=== PATIENT | female | born 1980 | race Caucasian/White ===

== ENCOUNTER 2022-10-06 08:52 | Emergency (ER) | payer OTHER, SELFPAY ==
[2022-10-06 10:00] VITALS: BP 120/75; PULSE 78; RESP 20; TEMP 37.3; O2SAT 100
--- NOTE | 2022-10-06 10:40 | ED.URI ---
HPI - URI/Sore Throat General Chief Complaint: Upper Respiratory Infection Stated Complaint: Cough/Sinus Congestion Time Seen by Provider: 10/06/22 10:40 Source: patient, RN notes reviewed and old records reviewed Mode of arrival: ambulatory Limitations: no limitations History of Present Illness HPI Narrative: 42-year-old female presents to [facility] with complaints of harsh productive cough, sinus congestion, sinus pressure, headache, nasal drainage for the past 3 days. Patient reports she has been taking ibuprofen and NyQuil for symptoms, rates her pain 10/10 denies any known sick contact. Patient has not been COVID vaccinated nor has she had a flu shot. Patient denies any chills or sweats denies any known fevers or any body aches patient denies any shortness of breath. MD elicited complaint: cough, rhinorrhea, nasal congestion and sinus pain Pertinent past history: other (Tobacco use) Onset (ago): day(s) (3) Pain scale (0-10): 10 Treatments prior to arrival: ibuprofen and other (NyQuil) Related Data Allergies Allergy/AdvReac Type Severity Reaction Status Date / Time codeine Allergy Unknown Other Verified 10/06/22 10:09 Review of Systems Review of Systems: CONSTITUTIONAL: Reports malaise,no chills, sweats, no known fevers EYES: Denies visual changes, redness, or discharge. ENT: Reports rhinorrhea, congestion, facial sinus pain, otalgia and sore throat. CARDIOVASCULAR: Denies chest pain, palpitations, or edema. RESPIRATORY: Reports acute cough.? Denies dyspnea. GASTROINTESTINAL: Denies abdominal pain, nausea, vomiting, diarrhea SKIN: Denies rash or itching. MUSCULOSKELETAL: Denies myalgia. NEUROLOGIC: Reports headache. All systems reviewed & are unremarkable except as noted in HPI and below PMFSH Surgical History Surgical History (Updated 10/06/22 @ 10:52 by Pam Wasserman NP) Previous section Social History Social History (Updated 10/06/22 @ 10:52 by Pam Wasserman NP) Smoking packs per day: 0.3 Smoking cigarettes per day: 6.0 Smoking status: Current every day smoker Second hand tobacco smoke exposure: Yes Alcohol intake: current Substance use type: does not use Gender identity (if verbalized by the patient): Female Comments At time of signature, agree with nursing past medical, surgical, social and family history. There is no relevant family history pertinent to the presenting complaint Exam Narrative: GENERAL: Well-appearing, well-nourished, and in no acute distress. HEAD: Normocephalic EYES: PERRLA, conjunctivae clear ENT: Nares clear, turbinates edematous and erythematous, clear light yellow discharge. Mucous membranes moist. TM pearly gramajo with dull light reflex bilaterally; no tragal tenderness. Oropharynx erythematous without lesions. Tonsils not enlarged and without exudate, no drooling, no hoarseness, no trismus, uvula midline.post nasal drainge NECK: Supple. No lymphadenopathy CHEST: Clear to auscultation, breath sounds equal. No wheezing, rhonchi, rales, or stridor. No respiratory distress, speaks in full sentences.harsh productive cough SAO2 100% on room air HEART: Regular rate and rhythm. No murmur heard. SKIN: Warm, dry, no rash. NEURO: Alert and oriented x3. PSYCH: Normal mood and affect Course Course Emergency Course: Patient is aware of diagnosis, understands and agrees to treatment plan.? Anticipatory guidance given.? Patient agrees to follow-up as directed and is aware of reasons to seek care at the emergency department. Portions of this record may have been created with voice recognition software Level of Care: Express Care Visit Vital Signs Vital signs: Vital Signs Temperature 37.3 C 10/06/22 10:00 Pulse Rate 78 10/06/22 10:00 Respiratory Rate 20 10/06/22 10:00 Blood Pressure 120/75 10/06/22 10:00 Pulse Oximetry 100 10/06/22 10:00 Oxygen Delivery Room Air 10/06/22 10:00 Temperature 37.3 C
== END 2022-10-06 11:00 | disposition home or self-care (01) ==
PROVIDERS: Emergency Provider Registered Nurse
DX: J32.9 Chronic sinusitis, unspecified (principal); R05.1 Acute cough; F17.210 Nicotine dependence, cigarettes, uncomplicated
CPT/HCPCS: 99203; G0463

== ENCOUNTER 2023-01-07 08:59 | Emergency (ER) | payer OTHER, SELFPAY ==
[2023-01-07 09:05] VITALS: BP 129/73; PULSE 90; RESP 16; TEMP 37.7; O2SAT 100
--- NOTE | 2023-01-07 09:37 | ED.URI ---
HPI - URI/Sore Throat General Chief Complaint: Upper Respiratory Infection Stated Complaint: Headache/Nausea Time Seen by Provider: 01/07/23 09:25 Source: patient, RN notes reviewed and old records reviewed Mode of arrival: ambulatory Limitations: no limitations History of Present Illness HPI Narrative: 42-year-old female who presents to [facility] with complaints of sinus pressure, fullness and tightness to head with acute frontal headache pain with no known fever and positive for chills for the past 2 days. Patient reports no sore throat or ear pain, reports that her legs ache. Patient reports no COVID vaccinations or any flu shot this season. Patient reports that she has taken Excedrin for her disxomfort. MD elicited complaint: other (headache, sinus pressure, chills,) Onset (ago): day(s) (2) Pain scale (0-10): 10 Treatments prior to arrival: other (excedrin) Related Data Home Medications Medication Instructions Recorded Confirmed aspirin-acetaminophen (buffered) tablet 01/07/23 250 mg-250 mg tablet Allergies Allergy/AdvReac Type Severity Reaction Status Date / Time codeine Allergy Unknown Other Verified 10/06/22 10:09 Review of Systems Review of Systems: CONSTITUTIONAL: Reports malaise, chills, sweats, or fever. EYES: Denies visual changes, redness, or discharge. ENT: Reports rhinorrhea, congestion, sinus pain,no otalgia and sore throat. CARDIOVASCULAR: Denies chest pain, palpitations, or edema. RESPIRATORY: Reports cough.? Denies dyspnea. GASTROINTESTINAL: Denies abdominal pain, nausea, vomiting, diarrhea SKIN: Denies rash or itching. MUSCULOSKELETAL:Reports myalgia. NEUROLOGIC Reports headache. All systems reviewed & are unremarkable except as noted in HPI and below [facility] Surgical History Surgical History (Updated 10/06/22 @ 10:52 by Pam Wasserman NP) Previous section Social History Social History (Updated 10/06/22 @ 10:52 by Pam Wasserman NP) Smoking packs per day: 0.3 Smoking cigarettes per day: 6.0 Smoking status: Current every day smoker Second hand tobacco smoke exposure: Yes Alcohol intake: current Substance use type: does not use Gender identity (if verbalized by the patient): Female Comments At time of signature, agree with nursing past medical, surgical, social and family history. There is no relevant family history pertinent to the presenting complaint Exam Narrative: GENERAL: Well-appearing, well-nourished, and in no acute distress. HEAD: Normocephalic EYES: PERRLA, conjunctivae clear ENT: Nares clear, turbinates edematous and erythematous, clear discharge. Mucous membranes moist. TM pearly gramajo with dull light reflex bilaterally; no tragal tenderness. Oropharynx erythematous without lesions. Tonsils not enlarged and without exudate, no drooling, no hoarseness, no trismus, uvula midline.frontal headache NECK: Supple. No lymphadenopathy CHEST: Clear to auscultation, breath sounds equal. No wheezing, rhonchi, rales, or stridor. No respiratory distress, speaks in full sentences.dry cough noted SAO2 100% on room air HEART: Regular rate and rhythm. No murmur heard. SKIN: Warm, dry, no rash. NEURO: Alert and oriented x3. PSYCH: Normal mood and affect Course Course Emergency Course: Patient is aware of diagnosis, understands and agrees to treatment plan.? Anticipatory guidance given.? Patient agrees to follow-up as directed and is aware of reasons to seek care at the emergency department. Portions of this record may have been created with voice recognition software Level of Care: Express Care Visit Vital Signs Vital signs: Vital Signs Temperature 37.7 C H 01/07/23 09:05 Pulse Rate 90 01/07/23 09:05 Respiratory Rate 16 01/07/23 09:05 Blood Pressure 129/73 01/07/23 09:05 Pulse Oximetry 100 01/07/23 09:05 Oxygen Delivery Room Air 01/07/23 09:05 Temperature 37.7 C H 01/07/23 09:05 Pulse Rate 90
== END 2023-01-07 10:12 | disposition home or self-care (01) ==
PROVIDERS: Emergency Provider Registered Nurse; PCP Emergency Medicine
DX: U07.1 COVID-19 (principal); F17.210 Nicotine dependence, cigarettes, uncomplicated
CPT/HCPCS: 87426; 99212; C9803; G0463

== ENCOUNTER 2024-07-27 14:30 | Emergency (ER) | payer OTHER, SELFPAY ==
[2024-07-27 14:39] VITALS: BP 127/78; PULSE 86; RESP 16; TEMP 37.2; O2SAT 98
--- NOTE | 2024-07-27 14:48 | ED.SKABFB ---
HPI - Skin/Abscess/Foreign Bdy General Chief complaint: Skin/Abscess/Foreign Body Stated complaint: Rash Time Seen by Provider: 07/27/24 14:48 Source: patient, RN notes reviewed and old records reviewed Mode of arrival: ambulatory Limitations: no limitations History of Present Illness HPI narrative: 44 year old female presents to [facility] care with complaints of rash to hr left inner forearm for the past 4 days after working in the yard cleaning brush and around trees. Patient reports that she has applied several topical medications to rash with no resolution of symptoms. Patient has noted vesicles and weeping from rash area, presently using Calamine lotion to rash. Patient reports area is very itchy. MD complaint: rash Onset (ago): day(s) (4) Location: LUE Severity: moderate Treatments prior to arrival: OTC topical medication, Benadryl and other (IVarest) Related Data Allergies Allergy/AdvReac Type Severity Reaction Status Date / Time codeine Allergy Unknown Other Verified 10/06/22 10:09 Review of Systems Review of Systems: CONSTITUTIONAL: Denies fever, chills, or sweats. CARDIOVASCULAR: Denies chest pain, palpitations, or edema. RESPIRATORY: Denies cough or dyspnea. SKIN: Reports itchy rash to her left inner forearm for 4 day duration with vesicles that are weeping MUSCULOSKELETAL: Denies joint pain or myalgia. NEUROLOGIC: Denies headache, numbness, or weakness. All systems reviewed & are unremarkable except as noted in HPI and below PMFSH Past Medical History Medical History Ganglion cyst of wrist left remove Surgical History Surgical History Previous section Social History Social History Smoking packs per day: 0.3 Smoking cigarettes per day: 6.0 Smoking status: Current every day smoker Second hand tobacco smoke exposure: Yes Alcohol intake: current Substance use type: does not use Gender identity (if verbalized by the patient): Female Comments At time of signature, agree with nursing past medical, surgical, social and family history. There is no relevant family history pertinent to the presenting complaint Exam Narrative: GENERAL: Well-appearing, well-nourished, and in no acute distress. HEAD: Normocephalic, atraumatic. EYES: PERRLA, conjunctivae clear, and EOMI. ENT: Mucous membranes moist. Oropharynx without edema, erythema or lesions. NECK: Supple. No lymphadenopathy CHEST: Clear to auscultation. No respiratory distress.SAO1 98% on room air HEART: Regular rate and rhythm. r SKIN: Warm, dry.? Patches of erythema and edema to left inner forearm with vesicles that are weeping and reported itching NEURO:? Alert and oriented x3. PSYCH: Normal mood and affect Course Course Emergency Course: Patient is aware of diagnosis, understands and agrees to treatment plan.? Anticipatory guidance given.? Patient agrees to follow-up as directed and is aware of reasons to seek care at the emergency department. Portions of this record may have been created with voice recognition software Level of Care: Express Care Visit Vital Signs Vital signs: Vital Signs Temperature 37.2 C 07/27/24 14:39 Pulse Rate 86 07/27/24 14:39 Respiratory Rate 16 07/27/24 14:39 Blood Pressure 127/78 07/27/24 14:39 Pulse Oximetry 98 07/27/24 14:39 Oxygen Delivery Room Air 07/27/24 14:39 Temperature 37.2 C 07/27/24 14:39 Pulse Rate 86 07/27/24 14:39 Respiratory Rate 16 07/27/24 14:39 Blood Pressure 127/78 07/27/24 14:39 Pulse Oximetry 98 07/27/24 14:39 Oxygen Delivery Room Air 07/27/24 14:39 Reviewed MDM - Skin/Abscess/Foreign Bdy MDM Narrative Medical decision making narrative: Does not appear at this time to be erythema multiforme, bullous, SJS, TEN; no evidence at this time
== END 2024-07-27 15:03 | disposition home or self-care (01) ==
PROVIDERS: Emergency Provider Registered Nurse
DX: L25.5 Unspecified contact dermatitis due to plants, except food (principal); F17.210 Nicotine dependence, cigarettes, uncomplicated
CPT/HCPCS: 99213; G0463